=== PATIENT | male | born 1985 | race Two or more races ===

== ENCOUNTER 2023-08-05 18:02 | Emergency (ER) | payer OTHER ==
[2023-08-05] MEDS ORDERED: Sodium Chloride 0.9% 10 ML Syringe FLUSH PRN (18:18)
[2023-08-05] MEDS ORDERED: HYDROmorphone 0.5 MG/0.5 ML Syringe IVPUSH ONE (18:21)
[2023-08-05 18:30] LABS: BASOPHILS ABSOLUTE AUTO 0.1 K/mm3 (0.0-0.2); BASOPHILS PERCENT AUTO 0.8 % (0.0-1.0); EOSINOPHILS ABSOLUTE AUTO 0.3 K/mm3 (0.0-0.4); EOSINOPHILS PERCENT AUTO 4.4 % (0.0-6.0); HEMATOCRIT 44.7 % (42.0-52.0); HEMOGLOBIN 15.5 gm/dl (14.0-18.0); IMMATURE GRAN ABSOLUTE AUTO 0.01 K/mm3 (0.00-0.05); IMMATURE GRAN PERCENT AUTO 0.1 % (0.0-0.4); LYMPHOCYTES ABSOLUTE AUTO 2.2 K/mm3 (1.0-4.8); LYMPHOCYTES PERCENT AUTO 28.7 % (24.0-44.0); MEAN CORPUSCULAR HEMOGLOBIN 32.4 pg (28.0-32.0); MEAN CORPUSCULAR HGB CONC 34.7 g/dl (32.0-36.0); MEAN CORPUSCULAR VOLUME 93.5 fl (83.0-99.0); MEAN PLATELET VOLUME 11.7 fl (9.4-12.4); MONOCYTES ABSOLUTE AUTO 0.8 K/mm3 (0.0-0.8); NEUTROPHILS ABSOLUTE AUTO 4.2 K/mm3 (1.8-7.7); PLATELET COUNT,PLT 174 K/mm3 (150-400); RED BLOOD CELL COUNT 4.78 M/mm3 (4.52-5.90); WHITE BLOOD CELL COUNT,WBC 7.53 K/mm3 (3.9-11.3)
[2023-08-05 18:40] LABS: A/G RATIO 1.2 (1-2); ALBUMIN 4.2 g/dl (3.4-5.0); ANION GAP 14.2 (5-15); BILIRUBIN TOTAL 0.4 mg/dL (0.2-1.0); BUN/CREATININE RATIO 18.3 (14-18); CALCIUM 9.6 mg/dL (8.5-10.1); CREATININE 1.8 mg/dL (0.7-1.3); EST CRCL DRUG DOSING (CG) 58.02 mL/min; POTASSIUM,K 3.2 mEq/L (3.5-5.1); PROTEIN TOTAL,TP 7.7 g/dl (6.4-8.2)
[2023-08-05] MEDS ORDERED: Fluorescein 1 MG Ophth Strip EYELF ONE (18:45)
[2023-08-05] MEDS ORDERED: Sodium Chloride 0.9% 10 ML Syringe FLUSH ONE (18:50)
[2023-08-05] MEDS ORDERED: Iopamidol 612 MG/ML 100 ML Bottle IVPUSH ONE (18:50)
[2023-08-05] MEDS ORDERED: Ciprofloxacin 0.3% Ophth Soln 5 ML Bottle EYELF ONE (19:42)
== END 2023-08-05 20:35 | disposition home or self-care (01) ==
LOC: JD.ED 18:02
DX: S16.1XXA Strain of muscle, fascia and tendon at neck level, initial encounter (principal); S40.012A Contusion of left shoulder, initial encounter; S09.90XA Unspecified injury of head, initial encounter; S05.02XA Injury of conjunctiva and corneal abrasion without foreign body, left eye, initial encounter; I10 Essential (primary) hypertension; F17.210 Nicotine dependence, cigarettes, uncomplicated; V49.50XA Passenger injured in collision with unspecified motor vehicles in traffic accident, initial encounter; Y92.410 Unspecified street and highway as the place of occurrence of the external cause
CPT/HCPCS: 36415; 70450; 71260; 72125; 74177; 80053; 80307; 83690; 85025; 96374; 99284; A9270; J1170; J3490; Q9967